=== PATIENT | female | born 1950 | race Caucasian/White ===

== ENCOUNTER 2016-11-12 19:21 | Emergency (ER) | payer MEDICARE, OTHER ==
[~2016-11-12] VITALS: Ht 160 cm; Wt 54.0 kg
[~2016-11-12 19:21] MED LIST: ATOR40TA68 PO; AZIT500T3 PO; BENZ100C70 PO; MOME13HF IH; MONT10TA24 PO; OMEP20CA16 PO; PRED20TA PO; PROVENTIL INH; TIOT18CA IH
[2016-11-12 20:02] VITALS: Ht 160 cm; Wt 54.0 kg
[2016-11-12 20:22] LABS: URINE BLOOD (Dip) POC 2+ (NEGATIVE)
[2016-11-12] MEDS ORDERED: ALBUTEROL 0.083% (NEB) 2.5 MG/3 ML AMP NEB STA (20:41)
[2016-11-12] MEDS ORDERED: IBUP400T22 PO (20:41)
[2016-11-12] MEDS ORDERED: IPRATROPIUM (NEB) 0.5 MG/2.5 ML AMP NEB STA (20:41)
[2016-11-12] MEDS ORDERED: METHYLPREDNISOLONE 125 MG INJ IV STA (20:41)
[2016-11-12 21:02] LABS: ADD SCAN DIFF NO
[2016-11-12 21:04] LABS: BASOPHIL # 0.1 10^3/ul (0.0-0.1); BASOPHILS % 0.4 % (0.0-2.0); EOSINOPHILS # 0.6 10^3/ul (0.0-0.5); EOSINOPHILS % 3.4 % (0.0-7.0); HEMATOCRIT 40.9 % (37.0-47.0); HEMOGLOBIN 13.5 g/dl (12.0-16.0); LYMPHOCYTES # 2.3 10^3/ul (0.8-2.9); LYMPHOCYTES % 14.1 % (15.0-51.0); MEAN CORPUSCULAR HEMOGLOBIN 31.9 pg (29.0-33.0); MEAN CORPUSCULAR VOLUME 96.7 fl (82.0-101.0); MEAN PLATELET VOLUME 10.6 fl (7.4-10.4); MONOCYTE # 1.1 10^3/ul (0.3-0.9); MONOCYTES % 6.8 % (0.0-11.0); NEUTROPHILS % 74.8 % (39.0-77.0); PLATELET COUNT 327 10^3/UL (140-415); RED BLOOD COUNT 4.23 10^6/ul (4.20-5.40); RED CELL DISTRIBUTION WIDTH 13.2 % (11.5-14.5)
[2016-11-12 21:27] LABS: ANION GAP 10 (8-16); BLOOD UREA NITROGEN 11 mg/dl (7-20); CALCIUM 9.3 mg/dl (8.4-10.2); CARBON DIOXIDE 25 mmol/L (21-31); CHLORIDE 105 mmol/L (97-110); CREATININE 0.62 mg/dl (0.44-1.00); GLUCOSE 104 mg/dl (70-220); POTASSIUM 4.1 mmol/L (3.5-5.1); SODIUM 136 mmol/L (135-144)
[2016-11-12 21:39] LABS: B-TYPE NATRIURETIC PEPTIDE 103 PG/ML (0-125)
[2016-11-12 21:41] LABS: TROPONIN-I < 0.012 ng/ml (0.00-0.12)
--- NOTE | 2016-11-12 22:03 | RADRPT ---
PROCEDURE: XR Chest. CLINICAL INDICATION: Chest pain. TECHNIQUE: Single frontal chest x-ray. COMPARISON: 10/15/2013 FINDINGS: The cardiomediastinal silhouette is unremarkable. There is no CHF.. No focal infiltrate is seen. T here is no pleural effusion. There is no pneumothorax. There are degenerative changes of bilateral shoulders half.. IMPRESSION: No CHF or infiltrate. RPTAT: [facility]K .Jayden Parks MD, MD Date Time Electronically viewed and signed by .Jayden Parks MD, MD on 11/12/2016 22:02 .K/
[2016-11-12 22:46] VITALS: BP 105/69; PULSE 108; RESP 14
[2016-11-12] MEDS ORDERED: PRED20TA PO (22:59)
[2016-11-12] MEDS ORDERED: ALBU8.5H3 INH (22:59)
[2016-11-12] MEDS ORDERED: AZIT250T94 PO (22:59)
[2016-11-12] MEDS ORDERED: ALBU2.5V3 NEB (22:59)
[2016-11-12] MEDS ORDERED: NICO1PAT19 TD (23:03)
--- NOTE | 2016-11-12 23:07 | ERD ---
ER Documentation Chief Complaint Date/Time DATE: 11/12/16 TIME: 23:03 Chief Complaint chest pain x 2 days HPI This is a 66-year-old female with a history of COPD and asthma who is here because she is had a cough with some occasional green productive sputum over the past 3 days. She says she has a chronic cough uses no sputum production. She says she has some difficulty breathing and feels like she is having COPD exacerbation. She has no fever no chest pain or dyspnea on exertion.. The patient states that she has been gambling the past few days and in smoke-filled casinos. Patient is not oxygen dependent and has a nebulizer machine but is out of her nebulizer solution. She is a smoker. ROS All systems reviewed and are negative except as per history of present illness. Medications Home Meds Active Scripts Nicotine* (Nicotine* Patch) 7 mg/day Patch, 1 PATCH TD DAILY, #20 PATCH Prov:PILLO DE LUNA DO 11/12/16 Azithromycin* (Zithromax*) 250 Mg Tablet, 250 MG PO .ZPACK DIRECTED, #6 TAB TAKE 500 MG (2 TABS) THE FIRST DAY THEN 250 MG (1 TAB) DAYS 2-5 Prov:PILLO DE LUNA DO 11/12/16 Prednisone* (Prednisone*) 20 Mg Tab, 60 MG PO DAILY for 5 Days, TAB Prov:PILLO DE LUNA DO 11/12/16 Albuterol Sulfate* (Proair HFA*) 8.5 Gm Hfa.aer.ad, 2 PUFF INH Q4, #1 INHALER Prov:PILLO DE LUNA DO 11/12/16 Albuterol Sulfate* (Albuterol Sulfate* Neb) 0.083%-3 Ml Neb, 2.5 MG NEB Q4 Y for SHORTNESS OF BREATH, #30 EA Prov:PILLO DE LUNA DO 11/12/16 Reported Medications Ibuprofen* (Ibuprofen*) 400 Mg Tablet, 400 MG PO TID for PAIN, TAB 11/12/16 Montelukast Sodium* (Montelukast Sodium*) 10 Mg Tablet, 10 MG PO HS, TAB 01/02/15 Tiotropium [place]* (Spiriva*) 18 Mcg Cap.w.dev, 1 INH IH DAILY, EA 01/02/15 Mometasone-Formoterol (Dulera) 200-5 Mcg/Inh - 13 Gm Hfa.aer.ad, 2 PUFFS IH DAILY, EA 01/02/15 Omeprazole* (Omeprazole*) 20 Mg Capsule.dr, 20 MG PO DAILY, CAP 01/02/15 [Proventil] No Conflict Check, 90 MCG INH DAILY Y for SHORTNESS OF BREATH 01/02/15 Discontinued Reported Medications Atorvastatin* (Atorvastatin*) 40 Mg Tablet, 40 MG PO HS, TAB 01/02/15 Discontinued Scripts Benzonatate* (Tessalon Perle*) 100 Mg Capsule, 200 MG PO Q8H Y for COUGH, #20 CAP Prov:CATINA HINOJOSA MD 03/24/15 Azithromycin* (Zithromax*) 500 Mg Tablet, 500 MG PO DAILY for 3 Days, TAB Prov:CATINA HINOJOSA MD 03/24/15 Prednisone* (Prednisone*) 20 Mg Tab, 60 MG PO DAILY for 5 Days Prov:CATINA HINOJOSA MD 03/24/15 Allergies Allergies: Coded Allergies: No Known Drug Allergies (Verified Allergy, Unknown, 11/12/16) PMhx/Soc History of Surgery: Yes (C SECTION ) Anesthesia Reaction: No Hx Neurological Disorder: No Hx Respiratory Disorders: Yes (asthma, COPD) Hx Cardiac Disorders: No Hx Psychiatric Problems: No Hx Miscellaneous Medical Probl: Yes (HIGH CHOLESTEROL) Hx Alcohol Use: No Hx Substance Use: No Hx Tobacco Use: Yes (10CIGARETTES/DAY) Smoking Status: Current every day smoker FmHx Family History: No coronary disease Physical Exam Vitals Vital Signs Date Time Temp Pulse Resp B/P Pulse Ox O2 Delivery O2 Flow Rate FiO2 11/12/16 22:46 108 14 105/69 93 Room Air 11/12/16 21:36 Nasal Cannula 3 11/12/16 21:36 89 16 110/77 99 11/12/16 21:21 96 18 98 Nasal Cannula 2.0 11/12/16 21:21 98 2.0 11/12/16 20:02 98.8 105 20 113/68 96 Physical Exam Const: Well-developed, well-nourished Head: Atraumatic, normocephalic Eyes: Normal Conjunctiva, PERRLA, EOMI, normal sclera, no nystagmus ENT: Normal External Ears, Nose and Mouth, moist mucus membranes. Neck: Full range of motion. No meningismus, no lymphadenopathy. Resp: Distant breath sounds consistent with COPD. There is some scattered rhonchi on bilateral bases, no increased work of breathing Cardio: tachycardia, no murmurs, S1 S2 present Abd: Soft, non tender x 4, non distended. Normal bowel sounds, no guarding or rebound, no pulsitile abdominal masses or bruits Skin: No petechiae or rashes, no ecchymosis , no maculopapular rash Back: No midline or flank tenderness Ext: No cyanosis, or edema, FROM x 4, normal inspection, neurovascularly intact x 4 Neur: Awake and alert, STR 5/5 x 4, sensation intact x 4, no focal findings, cerebellum intact Psych: Normal Mood and Affect Result Diagram: 11/12/16205311/12/162053 Results 24 hrs Laboratory Tests Test 11/12/16 20:21 11/12/16 20:54 Bedside Urine pH (LAB) 6.5 Bedside Urine Protein (LAB) Negative Bedside Urine Glucose (UA) Negative Bedside Urine Ketones (LAB) Negative Bedside Urine Blood 2+ Bedside Urine Nitrite (LAB) Negative Bedside Urine Leukocyte Esterase (L Trace White Blood Count 16.010^3/ul Red Blood Count 4.2310^6/ul Hemoglobin 13.5g/dl Hematocrit 40.9% Mean Corpuscular Volume 96.7fl Mean Corpuscular Hemoglobin 31.9pg Mean Corpuscular Hemoglobin Concent 33.0g/dl Red Cell Distribution Width 13.2% Platelet Count 80071^3/UL Mean Platelet Volume 10.6fl Neutrophils % 74.8% Lymphocytes % 14.1% Monocytes % 6.8% Eosinophils % 3.4% Basophils % 0.4% Nucleated Red Blood Cells % 0.0/100WBC Neutrophils # 12.010^3/ul Lymphocytes # 2.310^3/ul Monocytes # 1.110^3/ul Eosinophils # 0.610^3/ul Basophils # 0.110^3/ul Nucleated Red Blood Cells # 0.010^3/ul Sodium Level 136mmol/L Potassium Level 4.1mmol/L Chloride Level 105mmol/L Carbon Dioxide Level 25mmol/L Anion Gap 10 Blood Urea Nitrogen 11mg/dl Creatinine 0.62mg/dl Glucose Level 104mg/dl Calcium Level 9.3mg/dl Troponin I < 0.012ng/ml B-Type Natriuretic Peptide 103PG/ML Current Medications Medications (Trade) Dose Ordered Sig/Anastacia Route PRN Reason Start Time Stop Time Status Last Admin Dose Admin Albuterol (Proventil 0.083% (Neb)) 7.5 mg ONCE STAT NEB 11/12/16 20:41 11/12/16 20:43 DC 11/12/16 21:21 Ipratropium [place] (Atrovent 0.02% (Neb)) 1.5 mg ONCE STAT NEB 11/12/16 20:41 11/12/16 20:43 DC 11/12/16 21:20 Methylprednisolone Sodium Succinate (Solu-Medrol) 125 mg ONCE STAT IV 11/12/16 20:41 11/12/16 20:43 DC 11/12/16 21:02 Procedures/MDM PROCEDURE: XR Chest. CLINICAL INDICATION: Chest pain. TECHNIQUE: Single frontal chest x-ray. COMPARISON: 10/15/2013 FINDINGS: The cardiomediastinal silhouette is unremarkable. There is no CHF.. No focal infiltrate is seen. There is no pleural effusion. There is no pneumothorax. There are degenerative changes of bilateral shoulders half.. IMPRESSION: No CHF or infiltrate. RPTAT: [facility]VK .Jayden Parks MD, MD Date Time Electronically viewed and signed by .Jayden Parks MD, on 11/12/2016 22:02 .K/ CC: PLILO DE LUNA DO EKG: Rate/Rhythm: Sinus tachycardia QRS, ST, QT: NORMAL DC, QRS, QT] Impression: Sinus tachycardia l EKG Patient received Solu-Medrol and breathing treatments. After treatments the patient says she is breathing much better and is ready to go home. Room air saturation is 94-95% We will discharge her with prednisone, albuterol inhaler and nebulizers and a Z- Estevan Departure Diagnosis: Primary Impression: COPD (chronic obstructive pulmonary disease) COPD type: COPD with acute lower respiratory infection Qualified Code: J44.0 - Chronic obstructive pulmonary disease with acute lower respiratory infection Additional Impression: Asthma attack Condition: Stable Patient Instructions: Copd Flare PILLO DE LUNA DO Nov 12, 2016 23:07
== END 2016-11-12 23:19 | disposition home or self-care (01) ==
LOC: E/R 19:21
DX: J44.0 Chronic obstructive pulmonary disease with (acute) lower respiratory infection (principal); J45.909 Unspecified asthma, uncomplicated; F17.210 Nicotine dependence, cigarettes, uncomplicated
CPT/HCPCS: 71010; 80048; 81003; 83880; 84484; 85025; 93005; 94644; J2930; 36415; 96374

== ENCOUNTER 2017-07-03 13:39 | Emergency (ER) | payer MEDICARE ==
[~2017-07-03] VITALS: Ht 157.5 cm; Wt 54.5 kg
[~2017-07-03 13:39] MED LIST changes: +ALBU2.5V3 NEB; +ALBU8.5H3 INH; -ATOR40TA68 PO; +AZIT250T94 PO; -AZIT500T3 PO; -BENZ100C70 PO; +IBUP400T22 PO; +NICO1PAT43 TD
[2017-07-03 13:44] VITALS: Ht 157.5 cm; Wt 54.5 kg
[2017-07-03] MEDS ORDERED: ALBUTEROL 0.5% (NEB) 2.5 MG/0.5 ML AMP INH STA (14:31)
[2017-07-03] MEDS ORDERED: IPRATROPIUM (NEB) 0.5 MG/2.5 ML AMP NEB STA (14:31)
[2017-07-03] MEDS ORDERED: DEXAMETHASONE 10 MG/ML 1 ML INJ IM STA (14:31)
--- NOTE | 2017-07-03 15:08 | RADRPT ---
PROCEDURE: XR Chest. CLINICAL INDICATION: Shortness of breath TECHNIQUE: Single portable view of the chest was obtained COMPARISON: CR CHEST 10/15/2013 FINDINGS: The trachea is midline. The cardiac silhouette and pulmonary vascularity are within normal limits. T here are bilateral chronic lung changes. The lungs are clear. The costophrenic angles are sharp. IMPRESSION: 1. Bilateral chronic lung changes. No evidence of acute cardiopulmonary disease. RPTAT: AAPP Physician [place] Date Time Electronically viewed and signed by Physician [place] on 07/03/2017 15:08 YULIA/
[2017-07-03] MEDS ORDERED: LEVO500T72 PO (16:43)
[2017-07-03] MEDS ORDERED: PRED20TA PO (16:44)
[2017-07-03 16:49] VITALS: BP 145/68; PULSE 102; RESP 22; TEMP 98.8
--- NOTE | 2017-07-03 16:51 | ERD ---
ER Documentation Chief Complaint Chief Complaint complasins of fever with cough x 3 days HPI This 67-year-old female presents with a fever and cough for the last 3 days. She is a daily smoker and does have COPD. She was using her home nebulizer machine and getting some relief but still feeling very short of breath. Denies any chest pain. She has no abdominal pain or weakness. ROS All systems reviewed and are negative except as per history of present illness. Medications Home Meds Active Scripts Prednisone* (Prednisone*) 20 Mg Tab, 40 MG PO DAILY for 5 Days, TAB Prov:ROBALAYNA DO 07/03/17 Levofloxacin* (Levaquin*) 500 Mg Tablet, 500 MG PO DAILY for 7 Days, TAB Prov:ROBALAYNA DO 07/03/17 Nicotine* (Nicotine* Patch) 7 mg/day Patch, 1 PATCH TD DAILY, #20 PATCH Prov:PILLO DE LUNA DO 11/12/16 Azithromycin* (Zithromax*) 250 Mg Tablet, 250 MG PO .ZPACK DIRECTED, #6 TAB TAKE 500 MG (2 TABS) THE FIRST DAY THEN 250 MG (1 TAB) DAYS 2-5 Prov:PILLO DE LUNA DO 11/12/16 Prednisone* (Prednisone*) 20 Mg Tab, 60 MG PO DAILY for 5 Days, TAB Prov:PILLO DE LUNA DO 11/12/16 Albuterol Sulfate* (Proair HFA*) 8.5 Gm Hfa.aer.ad, 2 PUFF INH Q4, #1 INHALER Prov:PILLO DE LUNA DO 11/12/16 Albuterol Sulfate* (Albuterol Sulfate* Neb) 0.083%-3 Ml Neb, 2.5 MG NEB Q4 Y for SHORTNESS OF BREATH, #30 EA Prov:PILLO DE LUNA DO 11/12/16 Reported Medications Ibuprofen* (Ibuprofen*) 400 Mg Tablet, 400 MG PO TID for PAIN, TAB 11/12/16 Montelukast Sodium* (Montelukast Sodium*) 10 Mg Tablet, 10 MG PO HS, TAB 01/02/15 Tiotropium [place]* (Spiriva*) 18 Mcg Cap.w.dev, 1 INH IH DAILY, EA 01/02/15 Mometasone-Formoterol (Dulera) 200-5 Mcg/Inh - 13 Gm Hfa.aer.ad, 2 PUFFS IH DAILY, EA 01/02/15 Omeprazole* (Omeprazole*) 20 Mg Capsule.dr, 20 MG PO DAILY, CAP 01/02/15 [Proventil] No Conflict Check, 90 MCG INH DAILY Y for SHORTNESS OF BREATH 01/02/15 Allergies Allergies: Coded Allergies: No Known Drug Allergies (Verified Allergy, Unknown, 11/12/16) PMhx/Soc History of Surgery: Yes (C SECTION ) Anesthesia Reaction: No Hx Neurological Disorder: No Hx Respiratory Disorders: Yes (asthma, COPD) Hx Cardiac Disorders: No Hx Psychiatric Problems: No Hx Miscellaneous Medical Probl: Yes (HIGH CHOLESTEROL) Hx Alcohol Use: No Hx Substance Use: No Hx Tobacco Use: Yes (10CIGARETTES/DAY) Physical Exam Vitals Vital Signs Date Time Temp Pulse Resp B/P Pulse Ox O2 Delivery O2 Flow Rate FiO2 07/03/17 14:47 118 20 98 21 07/03/17 13:44 101.0 118 20 133/76 98 Physical Exam Const: [] Distress, increased work of breathing, coughing appears uncomfortable Head: Atraumatic Eyes: Normal Conjunctiva ENT: Normal External Ears, Nose and Mouth. Neck: Full range of motion..~ No meningismus. Resp: Bilateral expiratory wheezes, coughs on exam Cardio: Regular tachycardia, no murmurs Abd: Soft, non tender, non distended. Normal bowel sounds Skin: No petechiae or rashes Back: No midline or flank tenderness Ext: No cyanosis, or edema Neur: Awake and alert oriented 3, no focal deficits Psych: Normal Mood and Affect Results 24 hrs Current Medications Medications (Trade) Dose Ordered Sig/Anastacia Route PRN Reason Start Time Stop Time Status Last Admin Dose Admin Ipratropium [place] (Atrovent 0.02% (Neb)) 1.5 mg ONCE STAT NEB 07/03/17 14:31 07/03/17 14:34 DC 07/03/17 14:45 Albuterol (Proventil 0.5% (Neb)) 5 mg ONCE STAT INH 07/03/17 14:31 07/03/17 14:34 DC 07/03/17 14:45 Dexamethasone (Decadron) 10 mg ONCE STAT IM 07/03/17 14:31 07/03/17 14:34 DC 07/03/17 15:07 Procedures/MDM Bronchitis with COPD exacerbation. This may have been triggered by initial viral illness but progression to bacterial illness is very likely in this smoker with underlying lung disease. Given Decadron in the ER. She made it clear upfront that she would not stay in the hospital. After initial breathing treatment she was feeling much better. No signs of pneumonia on x-ray. I am going to treat her with Levaquin 500 mg 7 days as well as prednisone for 5 days. She is feeling much better and is eager to go home. Chest x-ray interpretation: I see no acute process, I see no acute infiltrate, pneumothorax, no pulmonary edema, no fractures EKG interpretation: Normal sinus rhythm rate of 100, borderline axis, no ST-T wave changes concerning for acute ischemia, normal intervals. Monitor interpretation: Mild sinus tachycardia without arrhythmia Departure Diagnosis: Primary Impression: COPD exacerbation Additional Impression: Acute bronchitis Condition: Stable Patient Instructions: Bronchitis With Wheezing (Adult) Additional Instructions: Call your primary care doctor TOMORROW for an appointment during the next 2-3 days.See the doctor sooner or return here if your condition worsens before your appointment time. ALAYNA RIVAS DO Jul 03, 2017 16:51
== END 2017-07-03 16:49 | disposition home or self-care (01) ==
LOC: FTE 13:39
DX: J44.0 Chronic obstructive pulmonary disease with (acute) lower respiratory infection (principal); J20.9 Acute bronchitis, unspecified; F17.210 Nicotine dependence, cigarettes, uncomplicated
CPT/HCPCS: 71010; 94644; 96372; 99284; J1100

== ENCOUNTER 2017-09-02 23:18 | Inpatient (IN) | END 2017-09-06 17:20 | disposition home or self-care (01) | DRG 872 ==

== ENCOUNTER → 2018-02-16 | Outpatient (CLI) | END | disposition home or self-care (01) ==